=== PATIENT | male | born 1950 | race Asian ===

== ENCOUNTER 2016-04-23 14:36 | Outpatient (CLI) | payer OTHER ==
[2016-04-23 15:29] LABS: PLATELET COUNT 267 K/uL (142-355)
[2016-04-23 15:51] LABS: POTASSIUM 4.4 mmol/L (3.6-5.2); SODIUM 138 mmol/L (136-145)
== END 2016-04-23 19:55 | disposition home or self-care (01) ==
LOC: LAB 14:36
PROVIDERS: Nurse Practitioner Family
DX: I10 Essential (primary) hypertension (principal); E11.9 Type 2 diabetes mellitus without complications
CPT/HCPCS: 80053; 80061; 83036; 84439; 84443; 85027

== ENCOUNTER 2017-09-23 12:58 | Outpatient (CLI) | payer OTHER, MEDICARE | END 2017-09-23 21:16 | disposition home or self-care (01) | LOC: RESP 12:58 | DX: R06.02 Shortness of breath (principal) ==

== ENCOUNTER 2018-02-06 14:25 | Outpatient (CLI) | payer OTHER, MEDICARE ==
[2018-02-06 14:55] LABS: PLATELET COUNT 454 K/uL (142-355)
[2018-02-06 15:00] LABS: POTASSIUM 3.5 mmol/L (3.6-5.2)
[2018-02-07] MEDS ORDERED: GABA300C2 PO (18:15)
[2018-02-07] MEDS ORDERED: OLMESARTAN MEDO PO (18:16)
[2018-02-07] MEDS ORDERED: XARELTO20 MG PO (18:17)
[2018-02-07] MEDS ORDERED: EDLUAR10 MG SL (18:18)
== END 2018-02-06 20:38 | disposition home or self-care (01) ==
LOC: LABW 14:25
PROVIDERS: Internal Medicine Sleep Medicine
DX: I26.99 Other pulmonary embolism without acute cor pulmonale (principal); R06.02 Shortness of breath
CPT/HCPCS: 36415; 80053; 85027

== ENCOUNTER 2018-02-06 19:06 | Inpatient (IN) | payer OTHER, MEDICARE ==
[~2018-02-06] VITALS: Ht 167.6 cm; Wt 84.4 kg
[2018-02-06 19:32] VITALS: BP 11/55; TEMP 98.6
[2018-02-06 20:54] LABS: PLATELET COUNT 463 K/uL (142-355)
[2018-02-06 21:07] LABS: POTASSIUM 3.7 mmol/L (3.6-5.2)
[2018-02-06 22:15] VITALS: BP 107/60
[2018-02-06 22:30] VITALS: BP 107/56
[2018-02-06 23:30] VITALS: BP 145/78; TEMP 98.5
[2018-02-07] VITALS (17 sets, daily range): BP systolic 117–150; BP diastolic 52–79; TEMP 98.3–98.9; Ht 167.6 cm; Wt 84.4 kg
[2018-02-07] MEDS ORDERED: GABA300C2 PO (18:15)
[2018-02-07] MEDS ORDERED: OLMESARTAN MEDO PO (18:16)
[2018-02-07] MEDS ORDERED: XARELTO20 MG PO (18:17)
[2018-02-07] MEDS ORDERED: EDLUAR10 MG SL (18:18)
[2018-02-08] VITALS: BP 134/70; TEMP 98.4
[2018-02-08 04:00] VITALS: BP 152/72; TEMP 98.2
[2018-02-08 08:08] VITALS: BP 139/76; TEMP 98.6
== END 2018-02-08 10:42 | disposition home or self-care (01) | DRG 812 ==
LOC: ED 19:06 → ICU 22:24 → MED/SURG 02-07 11:53
PROVIDERS: ADMIT Family Medicine
PROC: 30233N1 Transfusion of Nonautologous Red Blood Cells into Peripheral Vein, Percutaneous Approach (ICD-10-PCS; principal; 2018-02-07)
PROC: 30233N1 Transfusion of Nonautologous Red Blood Cells into Peripheral Vein, Percutaneous Approach (ICD-10-PCS; 2018-02-08)
DX: D50.8 Other iron deficiency anemias (principal); I10 Essential (primary) hypertension; E11.42 Type 2 diabetes mellitus with diabetic polyneuropathy; Z86.711 Personal history of pulmonary embolism; R06.02 Shortness of breath; R53.1 Weakness
CPT/HCPCS: 36415; 80053; 81000; 82272; 82728; 83540; 85014; 85018; 85027; 85610; 85730; 86850; 86900; 86901; 86922; 99283; J1940; J3490; P9016

== ENCOUNTER 2018-02-27 08:30 | Day surgery (SDC) | payer OTHER, MEDICARE ==
[~2018-02-27 08:30] MED LIST: EDLUAR10 MG SL; GABA300C2 PO; OLMESARTAN MEDO PO; XARELTO20 MG PO
[2018-02-27 08:57] LABS: PLATELET COUNT 453 K/uL (142-355)
[2018-02-27 09:10] LABS: POTASSIUM 3.8 mmol/L (3.6-5.2)
[2018-02-27 09:21] LABS: PARTIAL THROMBOPLASTIN TIME 18.5 SECONDS (24.5-33.6)
== END 2018-02-27 11:20 | disposition home or self-care (01) ==
LOC: OR 08:30
PROVIDERS: Internal Medicine
PROC: 0DB68ZZ Excision of Stomach, Via Natural or Artificial Opening Endoscopic (ICD-10-PCS; principal; 2018-02-27)
PROC: 0DBN8ZZ Excision of Sigmoid Colon, Via Natural or Artificial Opening Endoscopic (ICD-10-PCS; 2018-02-27)
DX: K29.50 Unspecified chronic gastritis without bleeding (principal); B96.81 Helicobacter pylori [H. pylori] as the cause of diseases classified elsewhere; C18.7 Malignant neoplasm of sigmoid colon; D64.89 Other specified anemias; R19.5 Other fecal abnormalities; K92.2 Gastrointestinal hemorrhage, unspecified; K44.9 Diaphragmatic hernia without obstruction or gangrene
CPT/HCPCS: 80053; 85027; 85610; 85730; J3010

== ENCOUNTER 2018-03-20 14:24 | Outpatient (CLI) | payer OTHER, MEDICARE | END 2018-03-20 22:25 | disposition home or self-care (01) | LOC: LABW 14:24 | DX: C18.9 Malignant neoplasm of colon, unspecified (principal) | CPT/HCPCS: 36415; 82378 ==

== ENCOUNTER → 2018-04-14 | Day surgery (SDC) | payer OTHER, MEDICARE ==
[2018-04-14 08:22] LABS: PLATELET COUNT 380 K/uL (142-355)
[2018-04-14 08:36] LABS: PARTIAL THROMBOPLASTIN TIME 21.6 SECONDS (24.5-33.6)
== END ==
LOC: OR 04-11 08:00
PROVIDERS: Student in an Organized Health Care Education/Training Program
PROC: 05HM33Z Insertion of Infusion Device into Right Internal Jugular Vein, Percutaneous Approach (ICD-10-PCS; principal; 2018-04-14)
DX: C18.7 Malignant neoplasm of sigmoid colon (principal); I87.8 Other specified disorders of veins
CPT/HCPCS: 80053; 85027; 85610; 85730; C1788; J1100; J1644; J1885; J2001; J2250; J2405; J2704; J3010; J3490

== ENCOUNTER 2020-04-12 08:51 | Outpatient (CLI) | payer OTHER, MEDICARE | END 2020-04-12 19:47 | disposition home or self-care (01) | LOC: INF 08:51 | PROVIDERS: ATTEND Internal Medicine | DX: Z23 Encounter for immunization (principal) | CPT/HCPCS: 96372 ==

== ENCOUNTER 2020-05-10 14:02 | Outpatient (CLI) | payer OTHER, MEDICARE | END 2020-05-10 21:28 | disposition home or self-care (01) | LOC: INF 14:02 | PROVIDERS: ATTEND Internal Medicine | DX: Z23 Encounter for immunization (principal) | CPT/HCPCS: 96372 ==

== ENCOUNTER 2022-11-28 15:21 | Outpatient (CLI) | payer OTHER, MEDICARE | END 2022-11-28 20:02 | disposition home or self-care (01) | LOC: US 15:21 | PROVIDERS: ATTEND Internal Medicine | DX: M79.605 Pain in left leg (principal); R22.42 Localized swelling, mass and lump, left lower limb ==